=== PATIENT | male | born 1995 | race African-American/Black ===

== ENCOUNTER 2016-09-25 17:05 | Emergency (ER) | payer SELFPAY ==
[~2016-09-25] VITALS: Ht 167.6 cm; Wt 55.0 kg
[2016-09-25 17:10] VITALS: BP 140/74
== END 2016-09-25 17:47 | disposition left against medical advice (07) ==
LOC: ER 17:43
DX: R51 Headache (principal); Z53.21 Procedure and treatment not carried out due to patient leaving prior to being seen by health care provider